=== PATIENT | female | born 1945 | race Caucasian/White ===

== ENCOUNTER → 2022-06-11 | Outpatient (REF) | payer MEDICARE, SELFPAY ==
[2022-06-11 08:23] LABS: Hematocrit 29.1 % (37-47); Hemoglobin 9.3 g/dL (12.0-15.0); Mean Corpuscular Hgb 33.6 pg (27.0-32.0); Mean Corpuscular Volume 105.1 fL (81-99); Mean Platelet Vol. 9.7 fl (6.2-12.0); Platelet Count 268 K/mm3 (150-450); RBC Distribution Width CV 14.3 % (11.6-14.6); RBC Distribution Width SD 54.4 fl (35.1-43.9); Red Blood Count 2.77 M/mm3 (4.2-5.4); White Blood Count 5.3 K/mm3 (4.4-11.0)
[2022-06-11 08:49] LABS: ALB/GLOB Ratio 0.3 RATIO (0.9-2.4); AST(SGOT) 79 U/L (15-37); Alanine Aminotransfer ALT/SGPT 45 U/L (13-56); Albumin, Serum 1.7 g/dL (3.2-5.0); Alkaline Phosphatase 1598 U/L (45-117); Anion Gap 5 (5-15); BUN 26 mg/dL (7-18); BUN/Creat Ratio 29.8 RATIO (10-20); Calcium,Total 8.8 mg/dL (8.5-10.1); Chloride 107 mmol/L (98-107); Creatinine, Serum 0.87 mg/dL (0.55-1.02); EST Glomerular Filtration Rate 67 mL/min (>60); Est Glom Filt Rate - Afr Amer 81 mL/min (>60); Globulin 5.7 g/dL (2.2-4.2); Glucose 80 mg/dL (74-106); Potassium 4.4 mmol/L (3.5-5.1); Protein, Total 7.4 g/dL (6.4-8.2); Sodium Level 136 mmol/L (136-145)
== END ==
LOC: OLS.WCC 04:00
PROVIDERS: PCP Family Medicine; Referring Provider Family Medicine; Visit Provider Family Medicine
DX: R74.8 Abnormal levels of other serum enzymes (principal); E46 Unspecified protein-calorie malnutrition
CPT/HCPCS: 36415; 80053; 85027

== ENCOUNTER → 2022-06-14 | Outpatient (REF) | payer MEDICARE, SELFPAY ==
[2022-06-14 22:49] LABS: Mucous, Urine 0 SEEN /hpf (<or=2+); Red Blood Cells-Urine 0 SEEN /hpf (0-5)
[2022-06-14 22:57] LABS: Glucose, Dipstick Normal (Normal); Ketone-Dipstick Negative (Negative); Leukocyte Esterase-Dipstick 500 /ul (Negative); Nitrite-Dipstick Negative (Negative); Occult Blood-Urine Negative /ul (Negative); Protein-Dipstick 30 mg/dl (Negative); Specific Gravity, Urine 1.015 (1.002-1.030); Urine Urobilinogen 1 mg/dl (Normal)
[2022-06-14 23:01] LABS: Color, Urine Amber (Yellow); Urine Bilirubin Dipstick 1 mg/dL (Negative); Urine Clarity Sl Cloudy (Clear)
[2022-06-14 23:18] LABS: Bacteria 3+ /hpf (None Seen); Squamous Epithelial Cells - UA 0-5 SEEN /hpf (5-10); White Blood Cells 10-25 SEEN /hpf (0-5)
== END ==
LOC: OLS.WCC 22:46
PROVIDERS: PCP Family Medicine; Visit Provider Family Medicine
DX: R30.0 Dysuria (principal); R44.3 Hallucinations, unspecified
CPT/HCPCS: 81001; 87077; 87086; 87088; 87186

== ENCOUNTER 2022-06-30 08:56 | Emergency (ER) | payer MEDICARE, SELFPAY ==
[2022-06-30] VITALS (10 sets, daily range): BP systolic 86–126; BP diastolic 47–59; PULSE 77–91; RESP 14–17; TEMP 36.1–37.2; O2SAT 93–97; BMI 17.0
--- NOTE | 2022-06-30 09:05 | EKG12_ITS ---
Test Reason : ABD PAIN Blood Pressure : / mmHG Vent. Rate : 096 BPM Atrial Rate : 096 BPM P-R Int : 080 ms QRS Dur : 134 ms QT Int : 480 ms P-R-T Axes : 082 045 098 degrees QTc Int : 606 ms Sinus rhythm with short [place] with frequent and consecutive Premature ventricular complexes with junctio nal escape complexes Non-specific intra-ventricular conduction block Possible Inferior infarct , age undetermined T wave abnormality, consider anterolateral ischemia Abnormal ECG Confirmed by ADRIANE NO, DEON ([id number]), editor farm journal ERIK CHOU ([id number]) on 07/02/2022 11:17:49 AM Referred By: RU Confirmed By:DEON FORREST MD
--- NOTE | 2022-06-30 09:05 | CT_ITS ---
STUDY: CT ABDOMEN AND PELVIS WITH CONTRAST REASON FOR EXAM: Female, 77 years old. Diffuse abdominal pain, fever RADIATION DOSAGE (If Supplied By Facility): CTDIvol = ( ) mGy, DLP = ( ) mGycm TECHNIQUE: Transaxial images were obtained from the dome of the diaphragm to the symphysis pubis without oral contrast. IV 75mL Isovue-300 was administered. Sagittal and coronal images were reconstructed. Individualized dose optimization techniques were used for this CT. COMPARISON: None. FINDINGS: Lungs are mildly hyperexpanded with bibasilar atelectasis. Heart size is normal, there are calcified coronary vessels No suspicious hepatic lesion is identified. There is extensive intrahepatic biliary dilatation and there is presence of a stent within the intrahepatic and extrahepatic bile duct. There is evidence of soft tissue density within the distal two thirds of the stent suggesting there is a likely pancreatic head lesion which is extending into the stent. Stent is therefore likely occluded. There is also dilatation of the pancreatic duct and evidence of air within the pancreatic duct which is again likely due to the presence of the stent. Hyperdense debris noted within the gallbladder suggesting sludge or tiny stones there is borderline gallbladder wall thickening but there is no pericholecystic inflammation. Normal spleen. There is enlargement of the pancreatic head suggesting an underlying mass lesion. No peripancreatic inflammatory stranding is noted. Normal bilateral adrenal glands. Normal-appearing right kidney. Left kidney is atrophic, does not show evidence of enhancement and shows a minimal calcification in the inferior aspect. This suggests the left kidney is not functioning The stomach is distended and fluid-filled as is the distal esophagus. There is suspicious soft tissue density at the gastroesophageal junction including a couple of lymph nodes. Additionally, there is dilatation of the first and second portions of the duodenum. There are distended fluid-filled small bowel loops throughout all 4 quadrants of the abdomen suggesting ileus/early obstruction. A transition point is not clearly identified. This could be due to retained stool throughout the colon which may be impacted. There is diffuse atherosclerotic calcification of the abdominal aorta with elongation and tortuosity, but without a demonstrated aneurysm. Normal inferior vena cava. There are mesenteric and retroperitoneal lymph nodes, largest measures 0.93 cm in short axis dimension. Bladder is incompletely distended. Normal abdominal wall. Bony structures show degenerative change of the lumbar spine and pelvis with subacute healing fractures in the inferior pubic rami. CT/Abdomen/Pelvis W IV Cont ONLY IMPRESSION: Extensive intra and extrahepatic biliary dilatation despite the presence of a biliary stent. The distal two thirds of the stent appear to contain soft tissue mass which may be an extension of a lesion in the head of the pancreas. The amount of biliary dilatation suggests that the stent is likely occluded. Enlargement of the pancreatic head suggests a mass lesion is present. There is also extensive dilatation of the pancreatic duct and air within the pancreatic duct which is likely from the stent placement. Hyperdense debris within the dependent gallbladder likely sludge or tiny stones, there is borderline gallbladder wall thickening but no pericholecystic inflammation or fluid. Abnormally distended fluid-filled distal esophagus, stomach and first and second portions of the duodenum suggesting obstruction between the second and third portions of duodenum near the enlarged pancreatic head. Soft tissue density at the gastroesophageal junction concerning for lesion, and/or adenopathy Nondistended fluid-filled small bowel loops in all 4 quadrants of the abdomen suggest ileus/early obstruction which may be due to retained stool throughout the colon. Mesenteric and retroperitoneal lymph nodes measuring up to 9.3 mm in short axis dimension No free intraperitoneal fluid or air. Extensive degenerative bony changes with subacute healing fractures in the inferior pubic rami and symphysis Atrophic, likely nonfunctioning left kidney Electronically Signed: Kalen Aguilar MD at 11:57 EDT ,
--- NOTE | 2022-06-30 09:06 | EDS_ITS ---
HPI HPI - GI History of Present Illness Chief Complaint: Abd Pain Detail of Chief Complaint: Abdominal pain that started 2 weeks ago Informant: patient Abdominal Pain/Flank Pain Current Severity: 10/10 Nausea/Vomiting/Emesis GI Symptom: Positive for Nausea and Vomiting Narrative Narrative: Patient presents with abdominal pain that started 2 weeks ago. Patient states pain is continuous. Pain made worse by eating. She complains of frequent vomiting. She denies fevers. She denies chest pain. Patient denies blood in her stool black tarry stool. She describes decreased urine output. Prior abdominal surgery includes hysterectomy. Patient describes dysuria. [facility] Medical History (Updated 06/30/22 @ 16:[address] Terrance Adams, ) GERD (gastroesophageal reflux disease) Home Medications calcitriol 0.5 mcg capsule 0.5 mcg PO DAILY 06/30/22 [History Last Taken Unknown] duloxetine 30 mg capsule,delayed release 30 mg PO DAILY 06/30/22 [History Last Taken Unknown] lubiprostone 24 mcg capsule 24 mcg PO DAILY 06/30/22 [History Last Taken Unknown] pantoprazole 40 mg tablet,delayed release 40 mg PO DAILY 06/30/22 [History Last Taken Unknown] Allergy/AdvReac Type Severity Reaction Status Date / Time fentanyl AdvReac PT UNSURE Verified 06/30/22 09:05 OF REACTION hydromorphone [From Dilaudid] AdvReac PT UNSURE Verified 06/30/22 09:05 OF REACTION pregabalin [From Lyrica] AdvReac PT UNSURE Verified 06/30/22 09:05 OF REACTION Social History Smoking Status: Former smoker ROS ROS ED Review of Systems ROS Unobtainable: other Constitutional Constitutional ED: Reports lethargy; Denies chills, fever(s), sweats or weight loss Eyes Eyes: Denies blurry vision, change in vision or diplopia ENT ENT ED: Denies rhinorrhea or sore throat Cardiovascular Cardiovascular: Denies chest pain, orthopnea or racing heartbeat Respiratory/Chest Respiratory/Chest: Reports dyspnea; Denies cough, dyspnea on exertion, orthopnea or sputum Gastrointestinal Gastrointestinal: Reports abdominal pain, diarrhea, nausea and vomiting Genitourinary Genitourinary ED: Denies dysuria, hematuria or urinary frequency Musculoskeletal Musculoskeletal: Denies arthralgias, back pain, myalgias or neck pain Integumentary Denies abscess, Abrasions or rash Neurologic Neurologic: Denies headache(s) or weakness Psychiatric Psychiatric: Denies anxiety, depression or suicidal thoughts Endocrine Endocrinology: Denies polydipsia, polyphagia or polyuria Hematologic/Lymphatic Hematologic/Lymphatic: Denies easy bleeding, easy bruising or lymphadenopathy Allergic/Immunologic Allergic/Immunologic ED: Denies mouth swelling, tongue swelling or urticaria EXAM Physical Exam Const Vital Signs: 06/30/22 08:56 06/30/22 11:31 06/30/22 14:11 Temperature 96.9 F L Temperature Source Temporal Pulse Rate 91 84 86 Respiratory Rate 16 16 16 Blood Pressure 105/59 L 126/57 H 99/50 L Blood Pressure Mean 74 80 66 Pulse Ox 95 96 95 Oxygen Delivery Method Room Air Room Air Room Air 06/30/22 15:08 Temperature Temperature Source Pulse Rate 82 Respiratory Rate 16 Blood Pressure 86/48 L Blood Pressure Mean 60 Pulse Ox 94 Oxygen Delivery Method Room Air Positive well nourished and well developed General Appearance ED: well developed and NAD HEENT Reports TM's clear and moist mucous membranes normocephalic and atraumatic; Negative for trauma or tenderness Tympanic Membrane ED: Yes TM's clear Eyes PERRL and EOMs intact bilaterally Eyes Narrative: Patient has scleral icterus General Eye ED: Yes scleral icterus; Negative for pale conjunctiva Neck no lymphadenopathy, supple and no JVD General: Negative for tenderness Chest Wall inspection of chest normal and palpation of chest normal Chest: Negative for tenderness Resp normal respiratory effort and clear to auscultation bilaterally Effort and Inspection: Negative for respiratory distress or pain with movement Auscultation: Negative for rhonchi, wheezes or diminished lung sounds Cardio regular rate, regular rhythm, S1 normal heart sound, S2 normal heart sound and no murmurs Peripheral Pulses: pulses 2+ throughout GI normal to inspection, nondistended, normoactive bowel sounds, soft to palpation, non-distended and no masses GI Narrative: Tenderness palpation over right upper quadrant with guarding. Patient with tenderness over the epigastric region. Positive Hercules sign. No significant tenderness to the lower abdomen. Back/Spine no CVA tenderness and no thoracic nor lumbar tenderness Extremity normal to inspection General Extremety ED: Negative for edema General Extremity: Negative for edema Neuro oriented x3, CN's II-XII intact bilaterally, no sensory deficits noted and gait normal Sensorium / Orientation: awake, alert, oriented to person, oriented to place and oriented to time Motor Exam: strength 5/5 throughout and strength abnormal Psych mental status grossly normal Skin no rashes or lesions noted and no wounds MDM MDM MDM Narrative Medical decision making narrative: IV line established on arrival. Patient was given morphine and Zofran. CBC with differential obtained showed a white count of 15.6. Lactate was 2.3. Chemistry showed a sodium of 2.8 for which she received 40 mEq of potassium chloride IV. LFTs were elevated. Alk phos was elevated. Total bilirubin was 3.2. CT scan of the abdomen pelvis obtained showed a biliary stent with dilated intrahepatic and extrahepatic ducts with concern for obstructed stent. Patient also had evidence of cholecystitis on ultrasound of the gallbladder. Case was discussed with general surgeon on-call Dr. Jennings who recommended transfer of patient to tertiary care center as we do not have GI available today. I spoke with the transfer center at [facility] and they will contact physician to speak to us for possible transfer and acceptance of patient. Care of patient turned over to evening physician awaiting discussion with [facility] for possible transfer. Patient did have transient hypotension that responded to fluids and I suspect some of this may be morphine related. Lab Data Attestation: I reviewed the patient's lab results. Labs: Laboratory Results - last 24 hr 06/30/22 06/30/22 06/30/22 09:20 09:20 09:20 WBC 15.6 H RBC 3.58 L Hgb 11.8 L Hct 38.4 MCV 107.3 H MCH 33.0 H MCHC 30.7 L RDW Std Deviation 53.1 H RDW Coeff of Itzel 13.5 Plt Count 512 H MPV 10.3 Immature Gran % (Auto) 0.400 Neut % (Auto) 87.8 H Lymph % (Auto) 6.1 L [place] % (Auto) 5.5 Eos % (Auto) 0.1 Baso % (Auto) 0.1 Absolute Neuts (auto) 13.7 H Absolute Lymphs (auto) 0.95 Nucleated RBC % 0 Sodium Cancelled Potassium Cancelled Chloride Cancelled Carbon Dioxide Cancelled Anion Gap Cancelled BUN Cancelled Creatinine Cancelled Estim Creat Clear Calc Cancelled Est GFR (MDRD) Af Amer Cancelled Est GFR (MDRD) Non-Af Cancelled BUN/Creatinine Ratio Cancelled Glucose Cancelled Lactic Acid 2.3 H* Calcium Cancelled Total Bilirubin Cancelled AST Cancelled ALT Cancelled Alkaline Phosphatase Cancelled Troponin I High Sens Cancelled Total Protein Cancelled Albumin Cancelled Globulin Cancelled Albumin/Globulin Ratio Cancelled Lipase Cancelled Urine Color Urine Clarity Urine pH Ur Specific [place] Urine Protein Urine Glucose (UA) Urine Ketones Urine Occult Blood Urine Nitrite Urine Bilirubin Urine Urobilinogen Ur Leukocyte Esterase Urine RBC Urine WBC Ur Squamous Epith Cells Urine Bacteria Urine Mucus POC Glucose 06/30/22 06/30/22 06/30/22 09:35 10:00 14:13 WBC RBC Hgb Hct MCV MCH MCHC RDW Std Deviation RDW Coeff of Itzel Plt Count MPV Immature Gran % (Auto) Neut % (Auto) Lymph % (Auto) [place] % (Auto) Eos % (Auto) Baso % (Auto) Absolute Neuts (auto) Absolute Lymphs (auto) Nucleated RBC % Sodium 144 Potassium 2.8 L Chloride 90 L Carbon Dioxide > 45.0 H* Anion Gap TNP BUN 44 H Creatinine 1.23 H Estim Creat Clear Calc 29.49 Est GFR (MDRD) Af Amer 55 L Est GFR (MDRD) Non-Af 45 L BUN/Creatinine Ratio 35.8 H Glucose 158 H Lactic Acid Calcium 11.3 H Total Bilirubin 3.50 H AST 108 H ALT 92 H Alkaline Phosphatase 2734 H Troponin I High Sens 20 Total Protein 9.6 H Albumin 2.0 L Globulin 7.6 H Albumin/Globulin Ratio 0.3 L Lipase 46 L Urine Color Brown Urine Clarity Cloudy Urine pH 6.0 Ur Specific [place] 1.020 Urine Protein 30 H Urine Glucose (UA) Normal Urine Ketones 15 H Urine Occult Blood 25 H Urine Nitrite Positive H Urine Bilirubin 3 H Urine Urobilinogen 4 H Ur Leukocyte Esterase 500 H Urine RBC 0 SEEN Urine WBC 25-50 SEEN Ur Squamous Epith Cells 0-5 SEEN Urine Bacteria 4+ Urine Mucus 0 SEEN POC Glucose 112 H 06/30/22 14:20 WBC RBC Hgb Hct MCV MCH MCHC RDW Std Deviation RDW Coeff of Itzel Plt Count MPV Immature Gran % (Auto) Neut % (Auto) Lymph % (Auto) [place] % (Auto) Eos % (Auto) Baso % (Auto) Absolute Neuts (auto) Absolute Lymphs (auto) Nucleated RBC % Sodium Potassium Chloride Carbon Dioxide Anion Gap BUN Creatinine Estim Creat Clear Calc Est GFR (MDRD) Af Amer Est GFR (MDRD) Non-Af BUN/Creatinine Ratio Glucose Lactic Acid 0.5 Calcium Total Bilirubin AST ALT Alkaline Phosphatase Troponin I High Sens Total Protein Albumin Globulin Albumin/Globulin Ratio Lipase Urine Color Urine Clarity Urine pH Ur Specific [place] Urine Protein Urine Glucose (UA) Urine Ketones Urine Occult Blood Urine Nitrite Urine Bilirubin Urine Urobilinogen Ur Leukocyte Esterase Urine RBC Urine WBC Ur Squamous Epith Cells Urine Bacteria Urine Mucus POC Glucose Radiography Diagnostic Testing: Clinical Impression(s) from Imaging Studies Abdomen/Pelvis CT 06/30/22 09:05 IMPRESSION: Extensive intra and extrahepatic biliary dilatation despite the presence of a biliary stent. The distal two thirds of the stent appear to contain soft tissue mass which may be an extension of a lesion in the head of the pancreas. The amount of biliary dilatation suggests that the stent is likely occluded. Enlargement of the pancreatic head suggests a mass lesion is present. There is also extensive dilatation of the pancreatic duct and air within the pancreatic duct which is likely from the stent placement. Hyperdense debris within the dependent gallbladder likely sludge or tiny stones, there is borderline gallbladder wall thickening but no pericholecystic inflammation or fluid. Abnormally distended fluid-filled distal esophagus, stomach and first and second portions of the duodenum suggesting obstruction between the second and third portions of duodenum near the enlarged pancreatic head. Soft tissue density at the gastroesophageal junction concerning for lesion, and/or adenopathy Nondistended fluid-filled small bowel loops in all 4 quadrants of the abdomen suggest ileus/early obstruction which may be due to retained stool throughout the colon. Mesenteric and retroperitoneal lymph nodes measuring up to 9.3 mm in short axis dimension No free intraperitoneal fluid or air. Extensive degenerative bony changes with subacute healing fractures in the inferior pubic rami and symphysis Atrophic, likely nonfunctioning left kidney Electronically Signed: Kalen Aguilar MD at 11:57 EDT , Gallbladder Ultrasound 06/30/22 11:12 IMPRESSION: Multiple echogenic gallstones with gallbladder wall thickening, positive Hercules''s sign, pericholecystic fluid. Findings are consistent with cholecystitis. Diffuse intra and extrahepatic biliary dilatation despite the presence of a biliary stent. Hepatomegaly Dilated pancreatic duct Enlarged pancreatic head but it is poorly visualized due to ringdown artifact from the biliary stent. Electronically Signed: Kalen Aguilar MD at 13:30 EDT , Chest X-Ray 06/30/22 11:54 IMPRESSION: No acute cardiopulmonary process. Electronically Signed: Sarahi Goetz MD at 12:09 EDT , EKG Initial EKG: Attestation: I personally reviewed and interpreted this EKG as follows: Comments: Sinus rhythm with frequent PVCs. Nonspecific ventricular conduction delay. ST depression anteriorly. Ventricular rate of 95 bpm. Changes are new when compared with EKG from 2003. Prior EKG tracings: available for review Prior: Changed Discharge Plan Triage Chief Complaint: Abd Pain ED Provider: Terrance Adams Dx/Rx/DC Orders Clinical Impression: Abdominal pain, Hyperbilirubinemia, Acute UTI, Jaundice, Acute hypokalemia Prescriptions: No Action pantoprazole 40 mg tablet,delayed release (DR/EC) 40 mg PO DAILY calcitriol 0.5 mcg capsule 0.5 mcg PO DAILY duloxetine 30 mg capsule,delayed release(DR/EC) 30 mg PO DAILY lubiprostone 24 mcg capsule 24 mcg PO DAILY Primary Care Provider: Terrell Holloway Referrals: Charles Bowman MD [Non-Staff] - Disposition Disposition: DC/Tx to Another Type of HCF
[2022-06-30] MEDS: 0.9% Normal Saline 1,000 ML 125 ML IV ×2 (09:24→18:47)
[2022-06-30] MEDS: Ondansetron 4 MG/2 ML Vial IV (09:25)
[2022-06-30] MEDS: Morphine 4 MG/ML Syringe IV ×2 (09:25→11:26)
[2022-06-30 09:41] LABS: Absolute Lymphocyte Count 0.95 X10^3/uL (0.83-4.51); Absolute Neutrophil Count 13.7 X10^3/uL (2.0-7.7); Basophil# 0.02 X10^3/uL; Basophil% 0.1 % (0-1); Eosinophil# 0.02 X10^3/uL; Eosinophils% 0.1 % (0-5); Hematocrit 38.4 % (37-47); Hemoglobin 11.8 g/dL (12.0-15.0); Lymphocyte # 0.95 X10^3/ul (0.83-4.51); Lymphocyte % 6.1 % (19-41); Mean Corp Hgb Conc 30.7 g/dL (32-36); Mean Corpuscular Volume 107.3 fL (81-99); Mean Platelet Vol. 10.3 fl (6.2-12.0); Monocyte# 0.86 X10^3/uL; Monocyte% 5.5 % (0-10); NRBC Flagged by Analyzer 0 % (0-5); Neutrophil # 13.65 X10^3/uL (2.7-7.7); Neutrophil % 87.8 % (47-70); Platelet Count 512 K/mm3 (150-450); RBC Distribution Width CV 13.5 % (11.6-14.6); RBC Distribution Width SD 53.1 fl (35.1-43.9); Red Blood Count 3.58 M/mm3 (4.2-5.4); White Blood Count 15.6 K/mm3 (4.4-11.0)
[2022-06-30 09:48] LABS: Mucous, Urine 0 SEEN /hpf (<or=2+); Red Blood Cells-Urine 0 SEEN /hpf (0-5)
--- NOTE | 2022-06-30 09:57 | NURSING ---
[facility] HEMOLIZED.
[2022-06-30 10:06] LABS: Color, Urine Brown (Yellow); Glucose, Dipstick Normal (Normal); Ketone-Dipstick 15 mg/dl (Negative); Leukocyte Esterase-Dipstick 500 /ul (Negative); Nitrite-Dipstick Positive (Negative); Occult Blood-Urine 25 /ul (Negative); Protein-Dipstick 30 mg/dl (Negative); Urine Clarity Cloudy (Clear); Urine Urobilinogen 4 mg/dl (Normal)
[2022-06-30 10:08] LABS: Urine Bilirubin Dipstick 3 mg/dL (Negative)
[2022-06-30 10:11] LABS: Lactic Acid 2.3 mmol/L (0.4-1.9)
[2022-06-30 10:59] LABS: ALB/GLOB Ratio 0.3 RATIO (0.9-2.4); AST(SGOT) 108 U/L (15-37); Alanine Aminotransfer ALT/SGPT 92 U/L (13-56); Alkaline Phosphatase 2734 U/L (45-117); BUN 44 mg/dL (7-18); BUN/Creat Ratio 35.8 RATIO (10-20); Calcium,Total 11.3 mg/dL (8.5-10.1); Carbon Dioxide > 45.0 mmol/L (21.0-32.0); Chloride 90 mmol/L (98-107); Creatinine, Serum 1.23 mg/dL (0.55-1.02); EST Glomerular Filtration Rate 45 mL/min (>60); Est Glom Filt Rate - Afr Amer 55 mL/min (>60); Estimated Creatinine Clearance 29.49 ml/min; Globulin 7.6 g/dL (2.2-4.2); Glucose 158 mg/dL (74-106); Lipase 46 U/L (73-393); Potassium 2.8 mmol/L (3.5-5.1); Protein, Total 9.6 g/dL (6.4-8.2); Sodium Level 144 mmol/L (136-145); Troponin-I HS 20 pg/mL (3.0-54.0)
[2022-06-30 11:11] LABS: Bacteria 4+ /hpf (None Seen); White Blood Cells 25-50 SEEN /hpf (0-5)
[2022-06-30 11:12] LABS: Squamous Epithelial Cells - UA 0-5 SEEN /hpf (5-10)
--- NOTE | 2022-06-30 11:12 | US_ITS ---
STUDY: ABDOMINAL ULTRASOUND - RIGHT UPPER QUADRANT REASON FOR VISIT: Female, 77 years old right upper quadrant pain and nausea TECHNIQUE: Ultrasound evaluation of the right upper quadrant was performed with real-time and static funk-scale imaging. TECHNICAL QUALITY: Limited. Examination limited due to the patient?s condition. COMPARISON: CT scan from earlier today FINDINGS: Liver: The liver measures 21.1 cm. There is normal echogenicity of the liver. The bile ducts are dilated despite the presence of a biliary stent. There is hepatic color flow. The direction of portal flow is hepatopetal. There is no demonstrated mass lesion. Gallbladder: Normal distended gallbladder. The gallbladder wall measures 3.9 mm. There is a positive sonographic Hercules''s sign. There is pericholecystic fluid. There are multiple echogenic structures within the gallbladder, consistent with multiple gallstones along with echogenic sludge. Common Bile Duct (C.B.D.): The common bile duct measures 3.8 mm. Pancreas: Pancreas head is enlarged, with dilated pancreatic duct. The pancreatic head is not well visualized due to the presence of the previously noted stent. Right Kidney: Normal size of the right kidney. The right kidney measures 10.1 x 4.2 x 4.0 cm. Normal renal cortex. The right cortex measures 1.0 cm. There is no demonstrated renal mass or cyst. There is no right hydronephrosis. US/Gallbladder IMPRESSION: Multiple echogenic gallstones with gallbladder wall thickening, positive Hercules''s sign, pericholecystic fluid. Findings are consistent with cholecystitis. Diffuse intra and extrahepatic biliary dilatation despite the presence of a biliary stent. Hepatomegaly Dilated pancreatic duct Enlarged pancreatic head but it is poorly visualized due to ringdown artifact from the biliary stent. Electronically Signed: Kalen Aguilar MD at 13:30 EDT ,
--- NOTE | 2022-06-30 11:54 | RAD_ITS ---
STUDY: X-RAY CHEST REASON FOR EXAM: Female, 77 years old. Dyspnea TECHNIQUE: 2 frontal images of the chest were obtained. COMPARISON: CT of the abdomen and pelvis dated 06/30/2022 FINDINGS: The lungs are clear and expanded. There is no demonstrated pleural abnormality. Normal size heart. Normal mediastinum and beatriz. Normal visualized pulmonary arteries. Normal visualized aortic arch and descending thoracic aorta. Normal visualized thoracic spine. There is superior migration of the right humeral head suggestive of underlying rotator cuff pathology. There is no demonstrated abnormality of the visualized soft tissue structures of the upper abdomen. RAD/Chest 1 View (Portable) IMPRESSION: No acute cardiopulmonary process. Electronically Signed: Sarahi Goetz MD at 12:09 EDT ,
[2022-06-30 13:38] LABS: Reflex Lactate? Y
--- NOTE | 2022-06-30 14:17 | NURSING ---
CALLED [facility] FOR TRANSFER
[2022-06-30 14:35] LABS: Bedside Glucose 112 mg/dL (74-106)
[2022-06-30 14:59] LABS: Lactic Acid 0.5 mmol/L (0.4-1.9)
[2022-06-30] MEDS: Potassium Chloride 10mEq/100mL 10 MEQ/100 ML IV.SOLN. 100 MEQ IV BOLUS ×3 (15:07→17:39)
[2022-06-30] MEDS: 0.9% Normal Saline 1,000 ML 999 ML IV (15:07)
--- NOTE | 2022-06-30 15:27 | NURSING ---
CALLED [facility]. TALKED TO VIRI. SHE HAS PAGED DR VELASCO. HE TAKES HIS OWN CALLS
--- NOTE | 2022-06-30 16:31 | NURSING ---
[facility] Z[facility]ONG. HAD A STINT IN 2018 WITH A SAÚL FABIAN, AT [facility]
--- NOTE | 2022-06-30 16:42 | NURSING ---
CALLED [facility] TRANSFER LINE. TALKED TO MICAELA. SHE IS TALKING TO DR GRULLON
--- NOTE | 2022-06-30 16:50 | NURSING ---
FAXED FACESHEET TO [facility] [phone]
--- NOTE | 2022-06-30 17:43 | ED.RN ---
DR AWARE OF ONGOING PRESSURE
--- NOTE | 2022-06-30 18:14 | ED.RN ---
Dr LUNDY TALKING WITH POA. DECISION TO MAKE PT DNR WITH HOSPICE CARE. PLAN TO REFERR PT BACK TO FACILITY WITH HOSPICE CARE
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
--- NOTE | 2022-06-30 20:57 | NURSING ---
this RN called [facility] & report given to Jessica. Transport here to order picker patient.
== END 2022-06-30 21:15 | disposition skilled nursing facility (03) ==
PROVIDERS: Emergency Provider Emergency Medicine; PCP Family Medicine; Visit Provider Emergency Medicine
DX: K80.20 Calculus of gallbladder without cholecystitis without obstruction (principal); N17.9 Acute kidney failure, unspecified; N18.31 Chronic kidney disease, stage 3a; N39.0 Urinary tract infection, site not specified; K21.9 Gastro-esophageal reflux disease without esophagitis; Z87.891 Personal history of nicotine dependence; E80.7 Disorder of bilirubin metabolism, unspecified; E87.6 Hypokalemia; I49.3 Ventricular premature depolarization; Z51.5 Encounter for palliative care; Z66 Do not resuscitate; I12.9 Hypertensive chronic kidney disease with stage 1 through stage 4 chronic kidney disease, or unspecified chronic kidney disease; D64.9 Anemia, unspecified; F32.A Depression, unspecified; F41.9 Anxiety disorder, unspecified; Z87.19 Personal history of other diseases of the digestive system; Z96.89 Presence of other specified functional implants; Z79.899 Other long term (current) drug therapy; K86.89 Other specified diseases of pancreas; R73.9 Hyperglycemia, unspecified; K83.09 Other cholangitis
CPT/HCPCS: 71045; 74177; 76705; 80053; 81001; 82962; 83605; 83690; 84484; 85025; 93005; 96361; 96365; 96366; 96367; 96375; 96376; 99285; J7030; Q9967; A4216; J2405